=== PATIENT | male | born 1965 | race Caucasian/White ===

== ENCOUNTER 2025-02-16 09:22 | Outpatient (CLI) | payer SELFPAY ==
--- NOTE | ~2025-02-16 | XR_ITS ---
EXAM/ PROCEDURE: [id number] - 02/16/2025 9:42 CDT HISTORY: 59 years old Male with M54.2 - Cervicalgia; chronic neck pain COMPARISON: None available TECHNIQUE: Three view(s) FINDINGS/ IMPRESSION: There are no fractures or dislocations.Multilevel degenerative changes are seen. Visualized portion of lungs are clear. Reviewed, dictated and finalized at location N.
== END 2025-02-16 09:23 | disposition home or self-care (01) ==
PROVIDERS: PCP Family Medicine; Visit Provider Physician Assistant Medical
DX: M47.812 Spondylosis without myelopathy or radiculopathy, cervical region (principal)
CPT/HCPCS: 72040